=== PATIENT | female | born 1975 | race Caucasian/White ===

== ENCOUNTER 2018-11-20 18:43 | Emergency (ER) | payer OTHER ==
[~2018-11-20] VITALS: Ht 167.6 cm; Wt 61.2 kg
--- NOTE | 2018-11-20 18:53 | NUR ---
[facility]41 AND [employer], FROM [facility], HAD SEIZURE x 3 1 MIN APART, NO TRAUMA/INJURY. DENIES PAIN, VISION CHANGES, DIZZINESS, WEAKNESS, N/V. AOX4, VSS, RR EVEN AND UNLABORED ON RA. PT IS AMBULATORY. NO OTHER COMPLAINTS AT THIS TIME. [employer] AT BEDSIDE. READY FOR EVAL.
[2018-11-20] MEDS ORDERED: LEVETIRACETAM (500MG) 500 MG in IV NS 0.9% 100 ML IV ONE (19:00)
[2018-11-20] MEDS ORDERED: IV NS 0.9% 1,000 ML BAG IV ONE (19:00)
[2018-11-20] MEDS ORDERED: LEVETIRACETAM (500MG) 500 MG/5 ML VIAL IV ONE (19:26)
--- NOTE | 2018-11-20 20:23 | NUR ---
PT RESTING COMFORTABLY IN BED. ASKING FOR FOOD.
--- NOTE | 2018-11-20 20:42 | NUR ---
PT GIVEN SANDWICH AND JUICE.
--- NOTE | 2018-11-20 21:29 | NUR ---
Patient discharged to home in stable condition. Written and verbal after care instructions given. Patient verbalizes understanding of instruction.IV removed. Catheter intact and site benign. Pressure and 4x4 applied to site. No bleeding noted.
[2018-11-20 21:54] VITALS: BP 121/76
== END 2018-11-20 21:30 ==
LOC: ER 18:50
DX: G40.909 Epilepsy, unspecified, not intractable, without status epilepticus (principal); F17.200 Nicotine dependence, unspecified, uncomplicated; R00.0 Tachycardia, unspecified; Z60.2 Problems related to living alone
CPT/HCPCS: 84703; 93005; 96365; 99284; A4216; J1953 ×2; J7030 ×2